=== PATIENT | male | born 1965 | race Caucasian/White ===

== ENCOUNTER 2017-11-15 20:01 | Emergency (ER) | payer MEDICAID ==
[~2017-11-15] VITALS: Ht 185.4 cm; Wt 93.0 kg
[2017-11-15] MEDS ORDERED: ASPI-605 PO (20:15)
[2017-11-15] MEDS ORDERED: LOSA25TA3 PO (20:15)
--- NOTE | 2017-11-15 20:29 | NUR ---
DR. ALEXANDER RODRIGUEZ MD AT BEDSIDE FOR MSE.
--- NOTE | 2017-11-15 20:40 | NUR ---
Patient discharged to home in stable conditon. Written and verbal after care instructions given. Patient verbalizes understanding of instructions. Ambulated from ER with stable gait. All belongings with patient.
[2017-11-15 20:41] VITALS: BP 138/87
== END 2017-11-15 20:42 | disposition home or self-care (01) ==
LOC: ER 20:02
DX: H61.21 Impacted cerumen, right ear (principal); I10 Essential (primary) hypertension; E78.5 Hyperlipidemia, unspecified; F17.200 Nicotine dependence, unspecified, uncomplicated; Z88.0 Allergy status to penicillin; Z79.82 Long term (current) use of aspirin; Z79.899 Other long term (current) drug therapy
CPT/HCPCS: 99281; A4663

== ENCOUNTER 2019-03-02 21:10 | Emergency (ER) | payer MEDICAID ==
[~2019-03-02] VITALS: Ht 180.3 cm; Wt 96.2 kg
[~2019-03-02 21:10] MED LIST: ASPI-605 PO; LOSA25TA3 PO
--- NOTE | 2019-03-02 21:25 | NUR ---
Patient came in the ER with chief complaint of ringing in his ear in the past 3 days.
[2019-03-02] MEDS ORDERED: CLONIDINE HCL 0.2 MG TABLET ONE (21:28)
--- NOTE | 2019-03-02 21:28 | NUR ---
Dr. Helm on bedside for MSE.
[2019-03-02] MEDS ORDERED: CLONIDINE HCL 0.2 MG TABLET PO ONE (21:30)
--- NOTE | 2019-03-02 21:43 | NUR ---
Patient discharged to home in stable conditon. Written and verbal after care instructions given. Patient verbalizes understanding of instructions. Pt ambulated out of the ER with steady gait. All belongings with pt.
[2019-03-02 21:45] VITALS: BP 128/78
== END 2019-03-02 21:43 | disposition home or self-care (01) ==
LOC: ER 21:11
DX: H93.11 Tinnitus, right ear (principal); I10 Essential (primary) hypertension; F17.210 Nicotine dependence, cigarettes, uncomplicated; Z88.0 Allergy status to penicillin; Z79.82 Long term (current) use of aspirin; Z79.899 Other long term (current) drug therapy
CPT/HCPCS: A4663

== ENCOUNTER 2022-05-27 23:01 | Emergency (ER) | payer MEDICAID ==
[~2022-05-27] VITALS: Ht 185.4 cm; Wt 102.1 kg
--- NOTE | 2022-05-28 01:25 | NUR ---
Patient discharged to home in stable condition with taking patient home. Written and verbal after care instructions given. Patient verbalizes understanding of instructions. Stressed follow up or return to ER for worsening s/s.
[2022-05-28 01:26] VITALS: BP 150/100
== END 2022-05-28 01:27 | disposition home or self-care (01) ==
LOC: ER 23:01
DX: L76.21 Postprocedural hemorrhage of skin and subcutaneous tissue following a dermatologic procedure (principal); I25.2 Old myocardial infarction; Z79.82 Long term (current) use of aspirin; Z79.02 Long term (current) use of antithrombotics/antiplatelets; I10 Essential (primary) hypertension; F17.210 Nicotine dependence, cigarettes, uncomplicated
CPT/HCPCS: A4663